=== PATIENT | female | born 1955 | race Caucasian/White ===

== ENCOUNTER → 2018-03-19 | Day surgery (SDC) | payer OTHER ==
[~2018-03-19] VITALS: Ht 154.9 cm; Wt 95.3 kg
[~2018-03-19] MED LIST: ALLEGRA ALLERG180 M1 PO; BIOTIN2500 MCG PO; CALCIUM 500 +1 EAC5 PO; LEVOTHYROXINE112 MCG PO; ZADITOR5 ML OU; ZOCOR40 M1 PO
--- NOTE | 2018-03-25 09:05 | Operative Report ---
Operative/Inv Procedure Report Surgery Date: 03/19/18 Name of Procedure: Robotic laparoscopic mesh repair of incarcerated recurrent ventral incisional hernia Pre-Operative Diagnosis: Recurrent ventral incisional hernia Post-Operative Diagnosis: Same, incarcerated Estimated Blood Loss: scant Surgeon/Director Of Individual Giving: Gabriel CAMACHO,Tapan TINOCO Anesthesia: general endotracheal tube Operative/Procedure Note Note: Patient was positioned supine on the table. After successful induction of general anesthesia the abdomen was clipped prepped and draped in usual sterile fashion. The abdominal skin is marked to guide where the mesh will lay, centered under the defect, and where the 3 8 mm robotic trochars will be positioned, centered in the left anterior axillary line between the ribs and the iliac crest. After injection of local anesthetic at a spot in the mid to lateral left subcostal area, a horizontal 1 cm incision was made with a 15 blade. Using the plastic pointed-tipped translucent 8 mm with a metal robotic trocar and the camera inserted, the abdominal wall was traversed through this incision, watching on the screen, as the trocar passes through the layers, alternating colors, yellow fat white fascia red muscle, until the tip just seems to cee the inner thin peritoneal layer. At that point, I stop pushing and check if it's open by turning on the gas. If the belly insufflates then you know you can advance that large trocar into an empty space more directly without injuring the viscera. The gas was turned on to 15 mm. At this point you can see the umbilical ventral defect, it was already reduced. Next the 2 remaining 8 mm robotic trochars are placed one in the mid abdomen axillary line as mentioned in one lower down above the iliac crest. The robot then is brought to the patient attached docked and targeted. Then on the near side a peritoneal flap is started by scoring it measuring roughly 6 cm from the defect towards the left first scoring the peritoneum in a vertical line and then completing the incision with cautery keeping the flap thin, however near the midline at the defect because of prior surgery and scarring we did in parts include some of the transversalis fascia and posterior rectus sheath, and continuing that flap across to the right past the defect also on that side at least 6 cm, the defect was approximately 2. The defect was closed with a running 2-0 absorbable V lock suture. We then chose a Velcro type of mesh not coated sized it to 13 cm marked the rough surface rolled up like a scroll and stuffed down one of the trochars centered it over the defect, the mesh laid nicely and flat we had stopped corners to prevent curling it fit well within the flap that we had created and then we closed the flap that vertical line on the near side with a running 2-0 V lock suture. Next we checked for hemostasis and then undocked letting the gas escape pulling out the instruments and the trochars these 3 incisions were small there was no fascial closure needed and we then closed the skin with subcuticular 4-0 Monocryl, and then Mastisol, Steri-Strips and Band-Aids. Overall estimated blood loss was minimal, lap and sponge counts were correct, wound expectancy was clean, IV fluids crystalloid, complications none, patient tolerated the procedure well, did not significantly young during extubation and was returned to the recovery room in satisfactory condition.
== END ==
LOC: STS 03:05
DX: K43.0 Incisional hernia with obstruction, without gangrene (principal); E07.9 Disorder of thyroid, unspecified; G47.33 Obstructive sleep apnea (adult) (pediatric)
CPT/HCPCS: 49657; 64488; S2900; C1781; J0131; J2250; J2405; J3490